=== PATIENT | female | born 1970 ===

== ENCOUNTER 2019-05-27 13:21 | Emergency (ER) | payer BC ==
[2019-05-27 13:44] LABS: Influenza A Molecular POSITIVE (Negative)
[2019-05-27 14:28] VITALS: BP 147/87
--- NOTE | 2019-05-28 05:15 | ED ---
Influenza-Like Illness - HPI Summary HPI Summary: This patient is a 48-year-old female presenting to the ED with flulike symptoms. Patient states symptoms began this morning with cough, congestion, body aches. Patient took DayQuil prior to going to work, however continued to worsen. Patient states she feels fatigued, is having intermittent sweats and chills, unknown fevers. She states she has had a mild cough for 2 days, however symptoms worsened this morning with associated body aches. She did receive a flu vaccine this year. PT states she is otherwise healthy, denies any abd pain. Pt states she has had the flu in the past, upper resp, but no PNA. Endorses sick contacts, but none from at home. Pt has a history of migraines and is currently having a GARNER. Takes Excedrin migraine as needed. - History of Current Complaint Chief Complaint: EDFluSymptoms Time Seen by Provider: 05/27/19 13:30 Hx Obtained From: Patient Onset/Duration: Gradual Onset Severity: Moderate Associated Signs & Symptoms: Fever, F/C, Myalgia, Cough Related Hx: Possible Flu/Infectious Exposure - Allergy/Home Medications Allergies/Adverse Reactions: Allergies Allergy/AdvReac Type Severity Reaction Status Date / Time No Known Allergies Allergy Verified 05/27/19 13:24 PMH/Surg Hx/FS Hx/Imm Hx Previously Healthy: Yes - Immunization History Hx Pertussis Vaccination: No Immunizations Up to Date: Yes Infectious Disease History: No Infectious Disease History: Denies: Traveled Outside the [place] in Last 30 Days - Social History Occupation: Employed Full-time Alcohol Use: Occasionally Hx Substance Use: No Substance Use Type: Reports: None Hx Tobacco Use: No Smoking Status (MU): Never Smoked Tobacco Review of Systems Positive: Fever, Chills, Fatigue, Skin Diaphoresis Negative: Sore Throat, Ear Ache, Nasal Discharge Negative: Palpitations, Chest Pain Positive: Cough. Negative: Shortness Of Breath Negative: Abdominal Pain, Vomiting, Diarrhea, Nausea Positive: Myalgia Negative: Rash, Bruising Positive: Headache All Other Systems Reviewed And Are Negative: Yes Physical Exam Triage Information Reviewed: Yes Vital Signs On Initial Exam: Initial Vitals Temp Pulse Resp BP Pulse Ox 99.2 F 110 18 146/89 96 05/27/19 13:23 05/27/19 13:23 05/27/19 13:23 05/27/19 13:23 05/27/19 13:23 Vital Signs Reviewed: Yes Appearance: Positive: Ill-Appearing Skin: Positive: Warm, Skin Color Reflects Adequate Perfusion Head/Face: Positive: Normal Head/Face Inspection Eyes: Positive: EOMI, ARMANDO, Conjunctiva Clear ENT: Negative: Pharyngeal erythema, Nasal congestion, Nasal drainage, Tonsillar swelling, Tonsillar exudate, Hoarse voice, Dental tenderness, Sinus tenderness, Uvula midline Neck: Positive: Supple, No Lymphadenopathy Respiratory/Lung Sounds: Positive: Clear to Auscultation, Breath Sounds Present Cardiovascular: Positive: RRR, Pulses are Symmetrical in both Upper and Lower Extremities Musculoskeletal: Positive: Strength/ROM Intact Neurological: Positive: Sensory/Motor Intact, Alert, Oriented to Person Place, Time Psychiatric: Positive: Normal, Affect/Mood Appropriate Procedures - Sedation Patient Received Moderate/Deep Sedation with Procedure: No Diagnostics - Vital Signs Vital Signs Temp Pulse Resp BP Pulse Ox 05/27/19 14:18 99.1 F 103 20 147/87 99 05/27/19 13:23 99.2 F 110 18 146/89 96 - Laboratory Lab Results: Lab Results 05/27/19 Range/Units 13:29 Influenza A (Rapid) Positive A (Negative) Influenza B (Rapid) Not Reportable Lab Statement: Any lab studies that have been ordered have been reviewed, and results considered in the medical decision making process. Flu Symptom Course/Dx - Course Course Of Treatment: On physical examination, patient appears ill, diaphoretic. Vital signs are stable. Influenza positive. Lungs CTA, tachycardic. Pt otherwise healthy. Encouraged tamiflu and rx sent. Pt will rest x 5 days and return for worsening symptoms. - Diagnoses Differential Diagnosis/HQI/PQRI: Positive: Influenza Provider Diagnoses: Influenza A Discharge ED - Sign-Out/Discharge Documenting (check all that apply): Patient Departure - Discharge Plan Condition: Stable Disposition: HOME Prescriptions: Oseltamivir SUSP 75 MG dose* [Tamiflu SUSP 75 MG dose*] 75 mg PO BID #112.5 ml Oseltamivir SUSP 75 MG dose* [Tamiflu SUSP 75 MG dose*] 75 mg PO BID #112.5 oral.syrin Patient Education Materials: Influenza (ED) Referrals: Juan M Schrader MD [Primary Care Provider] - Additional Instructions: 12.5ml twice daily x 5 days Tylenol (or dayquil) four times daily Ibuprofen 600mg four times daily Drink plenty of fluids Eat small amounts at a time Rest - Billing Disposition and Condition Condition: STABLE Disposition: Home - Attestation Statements Provider Attestation: I was available for consult. This patient was seen by the ABEL. The patient was not presented to, seen by, or examined by me. Bry Egan MD
== END 2019-05-27 14:27 | disposition home or self-care (01) ==
LOC: ED 13:21
DX: J09.X2 Influenza due to identified novel influenza A virus with other respiratory manifestations (principal)
CPT/HCPCS: 99282